=== PATIENT | male | born 1985 | race Two or more races ===

== ENCOUNTER → 2024-05-19 | Outpatient (CLI) | payer BC, SELFPAY ==
--- NOTE | 2024-05-19 15:30 | XR_ITS ---
Examination: Abdomen sonogram, Limited Date and time of exam: May 19, 2024 1530 hours INDICATIONS: Elevated liver transaminase levels on laboratory examination today Technique: Real-time garcia scale transabdominal sonographic images of the upper abdomen obtained. Findings: Absent gallbladder Common bile duct 0.5 cm Pancreatic head 3.2 cm Mild hepatomegaly 16.7 cm fatty infiltration no focal liver lesions Normal hepatopedal portal venous flow Patent IVC IMPRESSION: Absent gallbladder Normal common bile duct Mild hepatomegaly fatty liver no focal liver lesions
== END | disposition home or self-care (01) ==
PROVIDERS: PCP Nurse Practitioner Family; Referring Provider Nurse Practitioner Family; Visit Provider Nurse Practitioner Family
DX: K76.0 Fatty (change of) liver, not elsewhere classified (principal); Z90.49 Acquired absence of other specified parts of digestive tract
CPT/HCPCS: 76705

== ENCOUNTER → 2024-09-27 | Outpatient (CLI) | payer BC, SELFPAY ==
[2024-09-27 18:20] LABS: Urea Breath Test Negative (Negative)
== END | disposition home or self-care (01) ==
LOC: SLDO 15:30 → COPL 15:36
PROVIDERS: PCP Nurse Practitioner Family; Referring Provider Nurse Practitioner Family; Visit Provider Nurse Practitioner Family
DX: K21.9 Gastro-esophageal reflux disease without esophagitis (principal)
CPT/HCPCS: 83013; 83014

== ENCOUNTER → 2024-12-30 | Outpatient (CLI) | payer BC, SELFPAY ==
[2024-12-30 10:50] LABS: Cardiac Risk Estimate 5.9 RATIO (4.0-6.7); Cholesterol 213 mg/dL (132-200); HDL Cholesterol 36 mg/dL (40-60); LDL Cholesterol,Calculated 105 mg/dL (0-130); Triglycerides 362 mg/dL (30-150)
[2025-01-05 06:20] LABS: Direct LDL* 114 mg/dL (<100)
== END | disposition home or self-care (01) ==
LOC: COPL 08:05
PROVIDERS: PCP Family Medicine; Referring Provider Nurse Practitioner Family; Visit Provider Nurse Practitioner Family
DX: E78.2 Mixed hyperlipidemia (principal)
CPT/HCPCS: 36415; 80061; 83721

== ENCOUNTER 2025-01-24 12:37 | Emergency (ER) | payer BC, SELFPAY ==
[2025-01-24 12:40] VITALS: BMI 43.3
--- NOTE | 2025-01-24 12:42 | EKG_ITS ---
[facility] Test Date: 2025-01-24 Pat Name: MANDY WING Department: Room: - Gender: Male Sas Administrator: : 1985 Requested By: ED Temporary Provider Order Number: [id number] Reading MD: ED Temporary Provider Measurements Intervals [place] Rate: 95 P: 36 ID: [id number] QRS: 3 QRSD: 88 T: 26 QT: 329 QTc: 414 Interpretive Statements SINUS RHYTHM WITH SINUS ARRHYTHMIA POSSIBLE ANTERIOR MYOCARDIAL INFARCTION , OF INDETERMINATE AGE [30 ms Q WAVE IN V3/V4, OR R < 0.2 mV IN V4] No previous ECG available for comparison /store/S0/[id number]/[id number].pdf
[2025-01-24 12:51] VITALS: BP 162/90; PULSE 97; RESP 18; TEMP 36.7; O2SAT 98
--- NOTE | 2025-01-24 13:03 | XR_ITS ---
Examination: PA lateral chest 2 views TECHNIQUE: Upright PA lateral chest 2 views Date and time: January 24, 2025 1303 hours INDICATIONS: Shortness breath chest pain beginning 2 days ago. FINDINGS: Normal heart size Lungs are clear. The osseous structures are intact. IMPRESSION: No active disease.
--- NOTE | 2025-01-24 13:03 | PD.EDRME ---
Rapid Medical Screening Exam RME Arrival date/time: 01/24/25 12:37 39-year-old male with a history of type 2 diabetes presents to the emergency room with a chief complaint of 7 out of 10 sternal chest pain that radiates down his left arm causing numbness x 2 days I have greeted and performed a focused initial assessment of this patient. A comprehensive ED assessment and evaluation of the patient, analysis of all test results, and completion of the medical decision making process will be conducted by additional ED providers. Chief Complaint: Chest Pain Time Seen by Provider: 01/24/25 12:52 Vital signs: Vital Signs Temperature 98.0 F 01/24/25 12:51 Pulse Rate 97 01/24/25 12:51 Respiratory Rate 18 01/24/25 12:51 Blood Pressure 162/90 H 01/24/25 12:51 Pulse Oximetry (%) 98 01/24/25 12:51 Oxygen Delivery Method Room Air 01/24/25 12:51 Vital signs reviewed by provider: Yes
[2025-01-24 14:03] LABS: Basophils # (Auto) 0.1 Thou/mm3 (0.0-0.2); Basophils % (Auto) 1 % (0-2.5); Eosinophils # (Auto) 0.1 Thou/mm3 (0.0-0.5); Eosinophils % (Auto) 1 % (0-10); Hematocrit 50.3 % (41.0-53.0); Hemoglobin 16.8 g/dL (13.5-16.0); Immature Granulocytes Auto 0.05 Thou/mm3 (0.00-0.00); Lymphocytes # (Auto) 2.4 Thou/mm3 (1.0-4.8); Lymphocytes % (Auto) 25 % (10-50); Mean Corpuscular HGB Conc 33.4 g/dl (31.0-37.0); Mean Corpuscular Hemoglobin 28.9 pg (25.0-35.0); Mean Corpuscular Volume 86 fL (80-100); Monocytes # (Auto) 0.5 Thou/mm3 (0.0-0.8); Monocytes % (Auto) 5 % (0-12); Neutrophils # (Auto) 6.5 Thou/mm3 (1.8-7.7); Neutrophils % (Auto) 68 % (37-80); Nucleated Red Blood Cell # 0.00 Thou/mm3 (0.00-0.00); Nucleated Red Blood Cell % 0 /100 WBC (0); Platelet Count 328 Thou/mm3 (140-440); RDW Standard Deviation 40.0 fL (35.1-43.9); Red Blood Count 5.82 Miln/mm3 (4.50-5.90); White Blood Count 9.6 Thou/mm3 (3.8-10.6)
[2025-01-24 14:30] LABS: Alanine Aminotransferase 61 U/L (10-49); Albumin, Serum 5.3 gm/dL (3.5-5.0); Albumin/Globulin Ratio 1.8 (1.2-2.2); Alkaline Phosphatase 90 U/L (46-116); Anion Gap 11 (7-16); Aspartate Amino Transferase 28 U/L (0-34); BUN/Creatinine Ratio 13 Ratio (12-20); Bilirubin,Total 0.5 mg/dL (0.3-1.2); Blood Urea Nitrogen 10 mg/dL (9-23); Calcium 10.7 mg/dL (8.3-10.6); Calcium (Corrected) 10.7 mg/dL (8.5-10.1); Carbon Dioxide 26.7 mMol/L (20.0-31.0); Chloride 104 mMol/L (98-107); Creatinine (Component) 0.8 mg/dL (0.6-1.3); Estimated Creatinine Clearance 162.6 mL/min (>60); Globulin 2.9 gm/dL (2.3-3.5); Glucose 93 mg/dL (74-106); Osmolality,Calculated 282 (275-295); Potassium 3.9 mMol/L (3.4-5.1); Sodium 142 mMol/L (136-145); Total Protein 8.2 gm/dL (5.7-8.2); Troponin I < 0.020 ng/mL (0.0-0.045); eGFR > 60 See Note
[2025-01-24 14:35] LABS: B-Type Natriuretic Peptide < 20 pg/mL (0-100)
[2025-01-24 14:58] LABS: Collection Type, Urine Clean Catch
[2025-01-24 15:09] LABS: Bilirubin,Urine Negative (Negative); Blood,Urine Negative (Negative); Clarity,Urine Clear (Clear/Hazy); Color,Urine Yellow (Lt Yel-Yel); Glucose, Urine Negative (Negative); Ketones,Urine Negative (Negative); Leukocyte Esterase,Urine Positive (Negative); Nitrite,Urine Negative (Negative); PH,Urine 5.5 (5.0-7.0); Protein,Urine Trace (Neg - Trace); RBC,Urine 3 /hpf (0-3); Specific Gravity,Urine 1.032 (1.001-1.035); Squamous Epithelial Cell,Urine 3 /hpf (0-5); Urobilinogen,Urine Negative mg/dL (0.0-1.0); WBC,Urine 6 /hpf (0-5)
[2025-01-24 15:14] LABS: Amphetamine/Methamp Scrn,U Negative (Negative); Barbiturate Screen,Urine Negative (Negative); Benzodiazepines Screen,Urine Negative (Negative); Benzoylecgonine Screen, Ur Negative (Negative); Fentanyl Screen,Urine Negative (Negative); Opiate Screen,Urine Negative (Negative); THC Screen,Urine Negative (Negative)
[2025-01-24 15:51] VITALS: BP 132/85; PULSE 81; RESP 16; TEMP 36.6; O2SAT 98
[2025-01-24 16:59] VITALS: BP 115/71; PULSE 80; RESP 16; TEMP 36.8; O2SAT 96
[2025-01-24] MEDS: SODIUM CHLORIDE 0.9% 1000 ML 1,000 ML 999 ML IV ×2 (17:16)
--- NOTE | 2025-01-24 17:41 | PD.EDCHEST ---
ED Chest Pain RME/HPI General Chief Complaint: Chest Pain Stated Complaint: CHEST DISCOMFORT, LIGHT HEADED Time Seen by Provider: 01/24/25 12:52 Arrival date/time: 01/24/25 12:37 RME / HPI RME / HPI narrative: 01/24/25 12:37 39-year-old male with a history of type 2 diabetes presents to the emergency room with a chief complaint of 7 out of 10 sternal chest pain that radiates down his left arm causing numbness x 2 days I have greeted and performed a focused initial assessment of this patient. A comprehensive ED assessment and evaluation of the patient, analysis of all test results, and completion of the medical decision making process will be conducted by additional ED providers. DR. KENT MAIN ED EVALUATION: 39-year-old male with past medical history of type 2 diabetes mellitus presents to the Emergency Department with complaint of chest discomfort associated with left arm tingling and shortness of breath. He also reports some lightheadedness dizziness. Denies cough, fever, or chills. Patient denies any tobacco, alcohol, or substance use. Related Data Previous Rx's ?Medication ?Instructions ?Recorded amoxicillin 875 mg-potassium 1 tab PO BID #14 tabs 01/23/20 clavulanate 125 mg tablet (Augmentin) ibuprofen 600 mg tablet 600 mg PO Q6H PRN Pain Scale 1-3 01/23/20 (Mild #20 tabs Allergies Allergy/AdvReac Type Severity Reaction Status Date / Time No Known Allergies Allergy Verified 01/24/25 12:39 Review of Systems Review of Systems Systems Reviewed: All systems reviewed, normal except as documented Past Medical History Past Medical History CARDIAC: Positive Hypercholesterolemia and Hypertension Social History SMOKING STATUS: Never smoker SUBSTANCE USE: does not use ALCOHOL: Never ED Exam Narrative Physical exam: GENERAL APPEARANCE: alert and oriented x 4, well-developed, well-nourished, no acute distress VITALS: All vitals were reviewed and the pulse ox is 96% on room air, which is normal according to my interpretation. HEENT: Normocephalic, atraumatic; pupils equal, round, reactive to light; EOMI; mucous membranes pink, moist; oropharynx clear NECK: Supple LUNGS: CTABL; no wheezes, no rales, no rhonchi HEART: Regular rate, regular rhythm; normal S1, S2; no murmurs ABDOMEN: non distended; normal BS; soft, no tenderness, no guarding, no rebound; no masses, no organomegaly, no hernia BACK: no CVA tenderness EXTREMITIES: atraumatic; no edema NEUROLOGIC: awake; alert and oriented x4; cranial nerves II-XII grossly intact; no focal sensory or motor deficits PSYCHIATRIC: appropriate mood and affect SKIN: warm, dry, normal color; no rashes Course Quality Measures none Orders Category Date Time Status EKG (ED ONLY) *Do not use* NOW Care 01/24/25 12:42 Completed EKG (ED Only) Stat Exams 01/24/25 12:42 Draft XR chest 2V Stat Exams 01/24/25 13:03 Completed B-Type Natriuretic Peptide Stat Lab 01/24/25 13:34 Completed CBC Stat Lab 01/24/25 13:34 Completed Comprehensive Metabolic Panel Stat Lab 01/24/25 13:34 Completed Drug Screen,Urine Stat Lab 01/24/25 14:53 Completed Troponin I Stat Lab 01/24/25 13:34 Completed Troponin I Stat Lab 01/24/25 17:11 Completed Urinalysis Stat Lab 01/24/25 14:53 Completed Sodium Chloride 0.9% 1000 ml [Ns] 1,000 ml Med 01/24/25 16:52 Discontinued IV 999 mls/hr Sodium Chloride 0.9% 1000 ml [Ns] 1,000 ml Med 01/24/25 16:52 Discontinued IV 999 mls/hr Vital Signs Vital signs: Vital Signs Temperature 98.0 F 01/24/25 12:51 Pulse Rate 97 01/24/25 12:51 Respiratory Rate 18 01/24/25 12:51 Blood Pressure 162/90 H 01/24/25 12:51 Pulse Oximetry (%) 98 01/24/25 12:51 Oxygen Delivery Method Room Air 01/24/25 12:51 Chest Pain MDM Narrative MDM Narrative:: IShaila am scribing for and in the presence of Dr. Kent. Patient data External records reviewed:: [facility] previous records Clinical information provided by:: patient Social determinants that could affect healthcare access:: none Patient has the following chronic illnesses:: type 2 diabetes mellitus How is presenting disease/condition affected by chronic disease/condition?: uneffected by Evaluation data The following diagnostics were reviewed and interpreted by me:: lab results, radiology exam(s) and EKG tracing(s) Lab and/or radiology exams considered but not ordered:: none Interpretation Summary: My interpretation: EKG performed at 1246 hours, sinus rhythm, rate 95, T wave inversion in V1 and V3, Q wave in lead 3 and V4, no acute ischemic changes Procedure(s): XR chest 2V Accession Number(s): [id number] cc: Ganesh Marshall; Jorge Alberto Cardozo MD~ Examination: PA lateral chest 2 views TECHNIQUE: Upright PA lateral chest 2 views Date and time: January 24, 2025 1303 hours INDICATIONS: Shortness breath chest pain beginning 2 days ago. FINDINGS: Normal heart size Lungs are clear. The osseous structures are intact. IMPRESSION: No active disease. Dictated By: Jorge Alberto Cardozo MD Medications / Prescriptions Medications or Prescriptions considered but not ordered:: none Medication administrations:: Medication Administration History Discontinued Medications Sodium Chloride (Ns) 1,000 mls @ 999 mls/hr IV .Q1H1M ONE Stop: 01/24/25 17:52 Last Infusion: 01/24/25 18:17 Dose: Infused Documented By: Admin: 01/24/25 17:16 Dose: 999 mls/hr Documented By: EF Sodium Chloride (Ns) 1,000 mls @ 999 mls/hr IV .Q1H1M ONE Stop: 01/24/25 17:52 Last Infusion: 01/24/25 18:17 Dose: Infused Documented By: Admin: 01/24/25 17:16 Dose: 999 mls/hr Documented By: EF see above Consultations Consultation(s) initiated? (list below): No Diagnosis Chest Pain Differential Diagnosis: other (acute coronary syndrome, pulmonary embolism, and musculoskeletal chest pain) Most likely diagnosis given after review of the tests above:: Chest discomfort Dizziness Dehydration, mild Admission Indicated Admission indicated?: not indicated Admission Request Was there a request for admission?: No Disposition Plan Disposition Plan: Discharge Discharge Attestation Discharge Attestation: The patient and all family members were given an opportunity to ask questions and understood the discharge instructions. Discharge instructions specifically effects, indications for sooner follow up or return to the emergency department, and the expected course of current diagnosis. Patient condition: Stable Discharge Plan Plan Patient Disposition: HOME (Self Care) Prescriptions/Referrals Prescriptions/Med Rec: No Action ibuprofen 600 mg Tablet 600 mg PO Q6H PRN (Reason: Pain Scale 1-3 (Mild) Qty: 20 0RF amoxicillin-pot clavulanate [Augmentin] 875-125 mg tablet 1 tab PO BID Qty: 14 0RF Referrals: [facility] [Primary Care Provider] - In 1 week Problem List Clinical Impression: Chest discomfort, Dizziness, Dehydration, mild Patient/Caregiver Discharge Instructions Education Materials: ED Dehydration (Adult) Print Language: Micronesian Stand Alone Forms: Babita Award Info., Work/School Release, Patient Portal Info Letter
[2025-01-24 17:44] LABS: Troponin I < 0.020 ng/mL (0.0-0.045)
[2025-01-24 18:20] VITALS: BP 131/81; PULSE 82; RESP 15; O2SAT 97
== END 2025-01-24 18:21 | disposition home or self-care (01) ==
PROVIDERS: Nurse Practitioner Family; Emergency Provider Emergency Medicine; PCP Nurse Practitioner Family
DX: E86.0 Dehydration (principal); R07.89 Other chest pain; R42 Dizziness and giddiness; I49.8 Other specified cardiac arrhythmias; E78.00 Pure hypercholesterolemia, unspecified; I10 Essential (primary) hypertension
CPT/HCPCS: 36415; 71046; 80053; 80307; 81001; 83880; 84484; 85025; 93005; 96360; 96361; 99283; J7030

== ENCOUNTER → 2025-02-18 | Outpatient (CLI) | payer BC, SELFPAY ==
--- NOTE | 2025-02-18 14:30 | XR_ITS ---
Examination: Ultrasound soft tissue epigastric region TECHNIQUE: Palpable lump epigastric region 2 days TECHNIQUE: Grayscale sonographic images soft tissue epigastric region FINDINGS: No cystic or solid mass IMPRESSION: No cystic or solid mass
== END | disposition home or self-care (01) ==
LOC: CDIM 14:10
PROVIDERS: PCP Family Medicine; Referring Provider Nurse Practitioner Family; Visit Provider Nurse Practitioner Family
DX: R22.2 Localized swelling, mass and lump, trunk (principal)
CPT/HCPCS: 76604